=== PATIENT | male | born 1935 | race Caucasian/White ===

== ENCOUNTER 2020-07-08 14:01 | Inpatient (IN) | payer MEDICARE, MEDICAID ==
[~2020-07-08] VITALS: Ht 160.2 cm; Wt 65.7 kg
--- NOTE | 2020-07-08 14:17 | ED GU-Male ---
General Chief Complaint: - Urinary Stated Complaint: PUS COMING FROM PENIS History of Present Illness Date Seen by Provider: Jul 08, 2020 Time Seen by Provider: 14:12 Initial Comments 84-year-old male sent in from the [place] [facility]. Patient is an uncircumcised male that has baldo pus coming from his penis. residential staff is unsure how long its been this way. They do report that his penis is more swollen, having difficulty retracting the foreskin. That over the last couple days he has not been as responsive has in the past. No reports of fevers or chills. He has had minimal to eat over the last couple days. No reports of fevers, cough or other systemic complaints. residential staff clarified that drainage started 3 weeks ago, they've been using some nystatin and had a small amount of drainage. That last Tuesday they were still able to retract the foreskin but today there is increased drainage and they're unable to retract the foreskin. Allergies and Home Medications Allergies Coded Allergies: insulin glargine (Verified Allergy, Unknown, 07/08/20) Patient Home Medication List Home Medication List Reviewed: Yes Review of Systems Review of Systems Constitutional: No chills, No fever; malaise EENTM: no symptoms reported Respiratory: No cough, No short of breath Cardiovascular: no symptoms reported Gastrointestinal: no symptoms reported Genitourinary: see HPI Musculoskeletal: no symptoms reported Skin: see HPI History of present illness is limited as patient does not communicate with me and [place] [facility] staff has limited information Past Agmgvlz-Trksxz-Ifcrcp Hx Past Med/Social Hx: Reviewed Nursing Past Med/Soc Hx Patient Social History Recent Foreign Travel: No Contact w/Someone Who Travel: No Physical Exam Vital Signs Vital Signs - First Documented 07/08/20 14:10 Temp 36.3 Pulse 71 Resp 18 B/P (MAP) 142/52 (82) Pulse Ox 97 O2 Delivery Room Air Capillary Refill : Height, Weight, BMI Height: '" Weight: lbs. oz. kg; BMI Method: General Appearance: other (decreased responsiveness) Cardiovascular: regular rate, rhythm Respiratory: lungs clear, normal breath sounds Gastrointestinal: soft, tenderness (mild lower abdomen, patient flinches and gross palpation) Genital/Rectal: other (patient is uncircumcised with gross pus coming out the tube of the foreskin with erythema and swelling) Neurologic/Psychiatric: other (patient does not verbally respond) Skin: other (small ulceration at the tip of the foreskin) Focused Exam Lactate Level 07/08/20 14:35: Lactic Acid Level 2.29*H Lactic Acid Level Laboratory Tests Test 07/08/20 14:35 Lactic Acid Level 2.29 MMOL/L (0.50-2.00) *H Progress/Results/Core Measures Suspected Sepsis SIRS Temperature: Pulse: Respiratory Rate: Laboratory Tests 07/08/20 14:35: White Blood Count 14.2H Blood Pressure / Mean: 07/08/20 14:35: Lactic Acid Level 2.29*H Laboratory Tests 07/08/20 14:35: Creatinine 1.13, Platelet Count 291, Total Bilirubin 0.2 Results/Orders Lab Results Laboratory Tests Test 07/08/20 14:35 07/08/20 14:47 Range/Units White Blood Count 14.2 H 4.3-11.0 10^3/uL Red Blood Count 4.21 L 4.35-5.85 10^6/uL Hemoglobin 12.9 L 13.3-17.7 G/DL Hematocrit 42 40-54 % Mean Corpuscular Volume 100 H 80-99 FL Mean Corpuscular Hemoglobin 31 25-34 PG Mean Corpuscular Hemoglobin Concent 31 L 32-36 G/DL Red Cell Distribution Width 13.5 10.0-14.5 % Platelet Count 291 130-400 10^3/uL Mean Platelet Volume 10.2 7.4-10.4 FL Immature Granulocyte % (Auto) 0 % Neutrophils (%) (Auto) 48 42-75 % Lymphocytes (%) (Auto) 41 12-44 % Monocytes (%) (Auto) 5 0-12 % Eosinophils (%) (Auto) 6 0-10 % Basophils (%) (Auto) 0 0-10 % Neutrophils # (Auto) 6.8 1.8-7.8 X 10^3 Lymphocytes # (Auto) 5.8 H 1.0-4.0 X 10^3 Monocytes # (Auto) 0.7 0.0-1.0 X 10^3 Eosinophils # (Auto) 0.8 H 0.0-0.3 10^3/uL Basophils # (Auto) 0.1 0.0-0.1 10^3/uL Immature Granulocyte # (Auto) 0.1 0.0-0.1 10^3/uL Neutrophils % (Manual) 43 % Lymphocytes % (Manual) 35 % Monocytes % (Manual) 3 % Eosinophils % (Manual) 6 % Basophils % (Manual) 1 % Band Neutrophils 5 % Atypical Lymphocytes 7 % Blood Morphology Comment NORMAL Sodium Level 140 135-145 MMOL/L Potassium Level 4.9 3.6-5.0 MMOL/L Chloride Level 102 98-107 MMOL/L Carbon Dioxide Level 27 21-32 MMOL/L Anion Gap 11 5-14 MMOL/L Blood Urea Nitrogen 22 H 7-18 MG/DL Creatinine 1.13 0.60-1.30 MG/DL Estimat Glomerular Filtration Rate > 60 BUN/Creatinine Ratio 19 Glucose Level 376 H 70-105 MG/DL Lactic Acid Level 2.29 *H 0.50-2.00 MMOL/L Calcium Level 9.1 8.5-10.1 MG/DL Corrected Calcium 9.3 8.5-10.1 MG/DL Magnesium Level 1.9 1.6-2.4 MG/DL Total Bilirubin 0.2 0.1-1.0 MG/DL Aspartate Amino Transf (AST/SGOT) 12 5-34 U/L Alanine Aminotransferase (ALT/SGPT) 8 0-55 U/L Alkaline Phosphatase 114 40-136 U/L Total Protein 7.3 6.4-8.2 GM/DL Albumin 3.7 3.2-4.5 GM/DL Urine Color YELLOW Urine Clarity CLOUDY Urine pH 5.5 5-9 Urine Specific Laurier >1.030 1.016-1.022 Urine Protein NEGATIVE NEGATIVE Urine Glucose (UA) 2+ H NEGATIVE Urine Ketones NEGATIVE NEGATIVE Urine Nitrite POSITIVE H NEGATIVE Urine Bilirubin NEGATIVE NEGATIVE Urine Urobilinogen 0.2 < = 1.0 MG/DL Urine Leukocyte Esterase NEGATIVE NEGATIVE Urine RBC (Auto) 1+ H NEGATIVE Urine RBC 5-10 H /HPF Urine WBC 0-2 /HPF Urine Crystals NONE /LPF Urine Bacteria LARGE H /HPF Urine Casts NONE /LPF Urine Mucus NEGATIVE /LPF Urine Culture Indicated YES My Orders Orders - BRANDEN BOWENS L DO Cbc With Automated Diff (07/08/20 14:19) Comprehensive Metabolic Panel (07/08/20 14:19) Lactic Acid Analyzer (07/08/20 14:19) Magnesium (07/08/20 14:19) Ua Culture If Indicated (07/08/20 14:19) Genital Culture (07/08/20 14:19) Catheter(Urinary) Insert & Ass 03,15 (07/08/20 14:19) Abdomen (Kub) 1 View (07/08/20 14:19) Blood Culture (07/08/20 14:23) Ed Iv/Invasive Line Start (07/08/20 14:23) Cefepime Injection (Maxipime Injection) (07/08/20 14:30) Ed Iv/Invasive Line Start (07/08/20 14:25) Ns Iv 1000 Ml (Sodium Chloride 0.9%) (07/08/20 14:25) Urine Culture (07/08/20 14:47) Manual Differential (07/08/20 14:35) Medications Given in ED Current Medications Medications Dose Ordered Sig/Irina Route Start Time Stop Time Status Last Admin Dose Admin Cefepime HCl 1000 mg/Sterile Water 10 ml @ 200 mls/hr ONCE ONCE IV 07/08/20 14:30 07/08/20 14:32 DC 07/08/20 15:14 200 MLS/HR Sodium Chloride 1,000 ml @ 500 mls/hr Q2H ONCE IV 07/08/20 14:25 07/08/20 16:25 DC 07/08/20 15:01 500 MLS/HR Vital Signs/I&O 07/08/20 07/08/20 14:10 16:19 Temp 36.3 36.3 Pulse 71 68 Resp 18 16 B/P (MAP) 142/52 (82) 168/76 (82) Pulse Ox 97 98 O2 Delivery Room Air Room Air Capillary Refill : Diagnostic Imaging Diagonstic Imaging: Xray Plain Films/CT/US/NM/MRI: abdomen Comments [facility], [place] NAME: PARTHA LOW [facility] REC#: [id number] PT STATUS: REG ER : 1935 PHYSICIAN: BRANDEN BOWENS DO ADMIT DATE: 07/08/20/ER FS Draft Date of Exam:07/08/20 ABDOMEN (KUB) 1 VIEW INDICATION: Abdominal tenderness. COMPARISON: None available. TECHNIQUE: Two radiographs of the abdomen dated 07/08/2020. FINDINGS: The minimally visualized lung bases are clear. Scattered vascular calcifications. Phleboliths within the lower pelvis. No dilated loops of large or small bowel. No differential air-fluid levels. No free air. No suspicious calcifications overlying the renal shadows. Scattered osseous degenerative changes without acute osseous abnormality. IMPRESSION: Chronic findings as described above without acute abnormality. Departure Communication (Admissions) Time/Spoke to Admitting Phy: 15:50 Okay to admit, we will start on Rocephin Impression Primary Impression: Urinary tract infection Qualified Codes: N39.0 - Urinary tract infection, site not specified Disposition: ADMITTED INPATIENT Condition: Stable Admissions Decision to Admit Reason: Admit from ER (General) Decision to Admit/Date: Jul 08, 2020 Time/Decision to Admit Time: 15:50 Departure-Patient Inst. Referrals: LINO BECKETT MD (PCP/Family) Primary Care Physician BRANDEN BOWENS DO Jul 08, 2020 14:17
[2020-07-08] MEDS ORDERED: NS IV 1000 ML 1,000 ML IV ONE (14:25)
[2020-07-08] MEDS ORDERED: CEFEPIME INJECTION 1,000 MG in WATER (STERILE) FOR INJECTION 10 ML IV ONE (14:30)
[2020-07-08 15:00] LABS: BASOPHILS # (AUTO) 0.1 10^3/uL (0.0-0.1); BASOPHILS % (AUTO) 0 % (0-10); EOSINOPHILS # (AUTO) 0.8 10^3/uL (0.0-0.3); EOSINOPHILS % (AUTO) 6 % (0-10); HEMATOCRIT 42 % (40-54); HEMOGLOBIN 12.9 G/DL (13.3-17.7); LYMPHOCYTES # (AUTO) 5.8 X 10^3 (1.0-4.0); LYMPHOCYTES % (AUTO) 41 % (12-44); MEAN CORPUSCULAR HEMOGLOBIN 31 PG (25-34); MEAN CORPUSCULAR HGB CONC 31 G/DL (32-36); MEAN CORPUSCULAR VOLUME 100 FL (80-99); MEAN PLATELET VOLUME 10.2 FL (7.4-10.4); MONOCYTES # (AUTO) 0.7 X 10^3 (0.0-1.0); MONOCYTES % (AUTO) 5 % (0-12); NEUTROPHILS # (AUTO) 6.8 X 10^3 (1.8-7.8); NEUTROPHILS % (AUTO) 48 % (42-75); PLATELET COUNT 291 10^3/uL (130-400); WHITE BLOOD COUNT 14.2 10^3/uL (4.3-11.0)
[2020-07-08 15:02] LABS: BACTERIA,URINE LARGE /HPF; BILIRUBIN,URINE NEGATIVE (NEGATIVE); CLARITY,URINE CLOUDY; COLOR,URINE YELLOW; GLUCOSE, URINE (UA) 2+ (NEGATIVE); KETONES,URINE NEGATIVE (NEGATIVE); LEUKOCYTE ESTERASE ,URINE NEGATIVE (NEGATIVE); NITRITE,URINE POSITIVE (NEGATIVE); PH,URINE 5.5 (5-9); PROTEIN,URINE NEGATIVE (NEGATIVE); WBC,URINE 0-2 /HPF
--- NOTE | 2020-07-08 15:08 | Diagnostic Imaging Report ---
INDICATION: Abdominal tenderness. COMPARISON: None available. TECHNIQUE: Two radiographs of the abdomen dated 07/08/2020. FINDINGS: The minimally visualized lung bases are clear. Scattered vascular calcifications. Phleboliths within the lower pelvis. No dilated loops of large or small bowel. No differential air-fluid levels. No free air. No suspicious calcifications overlying the renal shadows. Scattered osseous degenerative changes without acute osseous abnormality. IMPRESSION: Chronic findings as described above without acute abnormality. Dictated by: Dictated on workstation # [id number]
[2020-07-08 15:09] LABS: BILIRUBIN,TOTAL 0.2 MG/DL (0.1-1.0); BUN/CREATININE RATIO 19; CALCIUM 9.1 MG/DL (8.5-10.1); CARBON DIOXIDE 27 MMOL/L (21-32); CHLORIDE 102 MMOL/L (98-107); CREATININE SERUM 1.13 MG/DL (0.60-1.30); GFR ESTIMATED > 60; GLUCOSE 376 MG/DL (70-105); MAGNESIUM 1.9 MG/DL (1.6-2.4); POTASSIUM 4.9 MMOL/L (3.6-5.0); SODIUM 140 MMOL/L (135-145)
[2020-07-08 15:10] LABS: ALANINE AMINOTRANSFERASE 8 U/L (0-55); ALBUMIN 3.7 GM/DL (3.2-4.5); ALKALINE PHOSPHATASE 114 U/L (40-136); TOTAL PROTEIN 7.3 GM/DL (6.4-8.2)
[2020-07-08 15:16] LABS: ATYPICAL LYMPHOCYTES 7 %; BAND NEUTROPHILS 5 %; BASOPHILS % (MANUAL) 1 %; EOSINOPHILS % (MANUAL) 6 %; LYMPHOCYTES % (MANUAL) 35 %; MONOCYTES % (MANUAL) 3 %; NEUTROPHILS % (MANUAL) 43 %; RBC MORPH NORMAL
--- NOTE | 2020-07-08 16:35 | NUR ---
Call received from [facility], nurse on duty states that Dr. Chen prefers all his patients to be transferred to [place] for inpatient admission. Informed [facility] staff that Dr. Manzo believes patient needs inpatient urology care. Call placed to [facility], staff states they do not have inpatient urology. Call placed to patient's DPOA, informed of patient's need for admission and inpatient urology, DPOA gave consent to admit patient to [facility] in [place]. Call placed to [facility], nursing staff informed of DPOA's decision.
[2020-07-08 17:43] VITALS: BP_SYST 168; BP_SYST 189; BP_DIAS 76; BP_DIAS 82
[2020-07-08] MEDS ORDERED: NS IV 1000 ML 1,000 ML IV SCH (17:45)
--- NOTE | 2020-07-08 17:45 | NUR ---
Pardo Gloria admitted to room 420-1, with an admitting diagnosis of UTI, on 07/08/20 from [place] via , accompanied by .PARTHA LOW W introduced to surroundings, call light, bed controls, phone, TV, temperature control, lights, meal times, smoking policy, visitor policy, side rail policy, bathrooms and showers. Patient Rights given to patient in the handbook.PARTHA LOW W verbalizes understanding that [facility] is not responsible for the loss or damage to any personal effects or valuables that are kept in the patients posession during their hospitalization. PARTHA LOW W verbalizes understanding of Interdisciplinary Patient Education. Patient and/or family were informed about the Rapid Response Team and its purpose.
[2020-07-08] MEDS ORDERED: CATHETER FLUSH 10 ML SYR IV PRN (18:00)
[2020-07-08] MEDS: cefTRIAXone 1,000 MG/SWFI 10 ML IV PUSH IV SCH ×2 (18:23)
--- NOTE | 2020-07-08 19:50 | NUR ---
DR. PUENTES INFORMED ABOUT PT BEEN NPO AND DIABETIC WITHOUT INSULIN AND ACCUCHEK ORDERS. NE ORDERS TO START A PT ON A SLIDING SCALE, QHRS ACCUCHECK, AND TO PERFORMS A SWALLOW TEST TOMORROW.
[2020-07-08 20:30] VITALS: BP 182/84
--- NOTE | 2020-07-08 23:20 | NUR ---
DR PUENTES NOTIFIED ABOUT PT BLOD SUGAR OF 76. NEW ORDERS TO START D5 NS FLUIDS ON PT
[2020-07-08] MEDS: inSUlin ASPART (NovoLOG) 1 UNIT/0.01 ML (CHARGE PER UNIT) SC SCH (23:34)
[2020-07-09 00:37] VITALS: BP 182/90
[2020-07-09] MEDS: D5 NS 1000 ML IV SOLUTION 1,000 ML IV SCH ×2 (00:42→15:55)
[2020-07-09 04:41] VITALS: BP 174/78
[2020-07-09 05:59] LABS: ALANINE AMINOTRANSFERASE 10 U/L (0-55); ALBUMIN 3.4 GM/DL (3.2-4.5); ALKALINE PHOSPHATASE 86 U/L (40-136); BILIRUBIN,TOTAL 0.2 MG/DL (0.1-1.0); BUN/CREATININE RATIO 17; CALCIUM 8.1 MG/DL (8.5-10.1); CARBON DIOXIDE 22 MMOL/L (21-32); CHLORIDE 110 MMOL/L (98-107); CREATININE SERUM 0.98 MG/DL (0.60-1.30); GFR ESTIMATED > 60; GLUCOSE 85 MG/DL (70-105); POTASSIUM 3.9 MMOL/L (3.6-5.0); SODIUM 141 MMOL/L (135-145); TOTAL PROTEIN 6.5 GM/DL (6.4-8.2)
[2020-07-09] MEDS: inSUlin ASPART (NovoLOG) 1 UNIT/0.01 ML (CHARGE PER UNIT) SC SCH ×3 (06:06→17:59)
[2020-07-09 06:13] LABS: BASOPHILS # (AUTO) 0.1 10^3/uL (0.0-0.1); BASOPHILS % (AUTO) 0 % (0-10); EOSINOPHILS # (AUTO) 0.8 10^3/uL (0.0-0.3); EOSINOPHILS % (AUTO) 5 % (0-10); HEMATOCRIT 39 % (40-54); HEMOGLOBIN 12.1 g/dL (13.3-17.7); LYMPHOCYTES # (AUTO) 6.7 10^3/uL (1.0-4.0); LYMPHOCYTES % (AUTO) 42 % (12-44); MEAN CORPUSCULAR HEMOGLOBIN 30 pg (25-34); MEAN CORPUSCULAR HGB CONC 31 g/dL (32-36); MEAN CORPUSCULAR VOLUME 98 fL (80-99); MEAN PLATELET VOLUME 9.8 fL (9.0-12.2); MONOCYTES # (AUTO) 0.8 10^3/uL (0.0-1.0); MONOCYTES % (AUTO) 5 % (0-12); NEUTROPHILS # (AUTO) 7.7 10^3/uL (1.8-7.8); NEUTROPHILS % (AUTO) 48 % (42-75); PLATELET COUNT 273 10^3/uL (130-400); WHITE BLOOD COUNT 16.1 10^3/uL (4.3-11.0)
[2020-07-09 08:00] VITALS: BP 157/45
--- NOTE | 2020-07-09 09:00 | ST Dysphagia Evaluation ---
Speech Evaluation-General Medical Diagnosis UTI Onset Date: Jul 08, 2020 Therapy Diagnosis Therapy Diagnosis: Oropharyngeal Dysphagia Precautions Precautions: Aspiration Referral Referring Physician: Dr. Kwan Medical History Pertinent Medical History: Dementia Reviewed History: Yes Social History Home: Half-Way Current Living Status: Speech PLF/Current-Dysphagia Prior Level of Function Patient lives in the NH where his daily needs are met with staff assistance. Subjective Patient was confused but cooperative with the Bedside Dysphagia Evaluation. Oral Motor Skills Dentition: Edentalous Ability to Follow Directions: Fair NPO pending BDE Oral Expression Ability: Moderate Impairment Voice Voice Phonatory-Based Quality: Tremor, Weak Voice Pitch: Normal Voice Loudness: Moderately Soft/Quiet Face Facial Symmetry: Symmetrical Oral-Facial Assessment Oral-Facial Dentition: Normal Labial Seal Description: Reduced ROM Smile: Reduced ROM Lingual Protrusion: Abnormal Lingual ROM: Abnormal Lingual Strength: Normal Pharynx Velopharyngeal Move.: Normal Volitional Dry Swallow: Yes Dysphagia Evaluation Consistencies Presented: Thin Liquid, Mechanical Soft, Pureed Oral Phase: Unable to Form Bolus Oral phase is grossly within normal range for thin puree. Patient unable to form/manage a bolus for mechanical soft Pharyngeal Phase: Delayed Swallow Pharyngeal phase is within normal range for thin puree. Patient demo decreased swallow onset for mechanical soft Dietary Recommendations: Pureed Liquid Recommendations: Thin Swallowing Precautions: Alternate Liquids/Solids, Decreased Bolus 1/2 Tsp, Liquids from Straw, Small Bites and Sips, Sitting Upright 90 Degrees, Sitting 90 Degrees 30 Post Intake Dysphagia Evaluation Summary Patient was referred for a Bedside Dysphagia Evaluation by Dr. Kwan. BDE completed with thin liquids at 1/2 tsp x2 and small sips via straw x2 without difficulty. Puree was presented at 1/2 tsp without difficulty. Patient was presented 1/2 tsp of mechanical soft, however due to his edentulous state he had difficulty with bolus management and swallow onset. Patient is recommended for Dysphagia I with thin liquids. These diet recs were provided to nursing as well as written on the white board in his room. Barriers to Learning Patient's dementia, age Speech-Plan Patient/Family Goals Patient/Family Goals: Patient will return to the NH upon discharge. Treatment Plan Speech Therapy Treatment Plan: Discontinue ST Treatment Duration: Jul 09, 2020 Frequency: 1 time per week Estimated Hrs Per Day: .5 hour per day Rehab Potential: Guarded Barriers to Learning: Patient's dementia, age Pt/Family Agrees to Plan: Yes Safety Risks/Education Teaching Recipient: Patient Teaching Methods: Discussion Response to Teaching: Verbalize Understanding, Reinforcement Needed Education Topics Provided: Safety of oral intake, diet level Time Speech Therapy Time In: 08:15 Speech Therapy Time Out: 08:40 Total Billed Time: 25 Billed Treatment Time 1, TOMASA, DYST JUSTINO Marks Jul 09, 2020 08:59
[2020-07-09] MEDS ORDERED: LINA5TAB PO (11:05)
[2020-07-09] MEDS ORDERED: ACET-2267 PO (11:05)
[2020-07-09] MEDS ORDERED: DIPH25TA65 PO (11:05)
[2020-07-09] MEDS ORDERED: POTA10CA43 PO (11:05)
[2020-07-09] MEDS ORDERED: SERT25TA5 PO (11:05)
[2020-07-09] MEDS ORDERED: NYST15CR TOP (11:05)
[2020-07-09] MEDS ORDERED: TR025C15 TP (11:05)
[2020-07-09] MEDS ORDERED: INSU100I29 SC (11:05)
[2020-07-09] MEDS ORDERED: METF-399 PO (11:05)
[2020-07-09] MEDS ORDERED: POLY17PO6 PO (11:05)
[2020-07-09] MEDS ORDERED: SERT50TA9 PO (11:05)
[2020-07-09] MEDS ORDERED: PRIM50TA33 PO (11:05)
--- NOTE | 2020-07-09 11:06 | NUR ---
THE MED REC WAS ENTERED USING THE TRANSFER/DISCHARGE REPORT FROM [facility] I CALLED THE FACILITY TO CLARIFY THE MEDICATIONS- I SPOKE WITH ULISES WHO GAVE MY THE SCHEDULE OF HIS DAILY MEDICATIONS. I ALSO ASKED ABOUT NYSTATIN CREAM THAT IS SHOWN ON THE EXT MED HISTORY BUT IS NOT ON THE MEDICATION LIST AND SHE DID CONFIRM THE PT WAS STILL USING PRIOR TO HIS ADMISSION HERE.
--- NOTE | 2020-07-09 11:59 | History & Physical-Hospitalist ---
History of Present Illness HPI/Chief Complaint Pt is an 84yoCM with dementia who presented to the ER due to penile discharge and lethargy per the NH. He does not provide any history and I am unsure if this is his baseline. Reportedly he developed penile discharge over the past couple of days and his foreskin was unable to be retracted prompting them to send him to the ER for evaluation. He was found to have a UTI and was admitted for IV abx. Source: patient Date Seen 07/09/20 Time Seen by a Provider: 11:51 Attending Physician Deandre Kwan MD PCP Riki Chen MD Referring Physician Date of Admission Jul 08, 2020 at 17:34 Home Medications & Allergies Home Medications Reviewed patient Home Medication Reconciliation performed by pharmacy medication reconciliations tire technician and/or nursing. Patients Allergies have been reviewed. Allergies Allergies Coded Allergies insulin glargine (Verified Allergy, Unknown, 07/08/20) Past Utnqmfd-Udfpaa-Ytqehg Hx Past Med/Social Hx: Reviewed Nursing Past Med/Soc Hx Patient Social History Employed/Student: retired Alcohol Use: Denies Use Recreational Drug Use: No Smoking Status: Never a Smoker 2nd Hand Smoke Exposure: No Recent Foreign Travel: No Contact w/other who traveled: No Recent Hopitalizations: No Recent Infectious Disease Expo: No Seasonal Allergies Seasonal Allergies: No Past Medical History Neurological: Dementia Endocrine: Diabetes, Insulin dep Psychosocial: Depression History of Blood Disorders: No Family History Reviewed Nursing Family Hx Review of Systems ROS-Unable to Obtain: clinical condition Constitutional: see HPI Physical Exam Physical Exam Vital Signs Vital Signs - First Documented 07/08/20 14:10 Temp 36.3 Pulse 71 Resp 18 B/P (MAP) 142/52 (82) Pulse Ox 97 O2 Delivery Room Air Capillary Refill : Less Than 3 SecondsLess Than 3 Seconds Height, Weight, BMI Height: '" Weight: lbs. oz. kg; 170.91 BMI Method: General Appearance: No Apparent Distress, Chronically ill HEENT: PERRL/EOMI, Moist Mucous Membranes Neck: Normal Inspection Respiratory: Lungs Clear, No Respiratory Distress Cardiovascular: Regular Rate, Rhythm, No Murmur Gastrointestinal: Normal Bowel Sounds, Non Tender, Soft Extremity: Normal Capillary Refill, No Calf Tenderness, No Pedal Edema Neurologic/Psychiatric: Alert (opens eyes to touch but otherwise no response) Skin: Normal Color, Warm/Dry Results Results/Procedures Labs Laboratory Tests 07/08/20 14:35 07/09/20 05:25 07/09/20 06:05 Patient resulted labs reviewed. Imaging: Reviewed Imaging Report Imaging [facility], [place] NAME: PARTHA LOW [facility] REC#: [id number] PT STATUS: DEP ER : 1935 PHYSICIAN: BRANDEN BOWENS DO ADMIT DATE: 07/08/20/ER FS Signed Date of Exam:07/08/20 ABDOMEN (KUB) 1 VIEW INDICATION: Abdominal tenderness. COMPARISON: None available. TECHNIQUE: Two radiographs of the abdomen dated 07/08/2020. FINDINGS: The minimally visualized lung bases are clear. Scattered vascular calcifications. Phleboliths within the lower pelvis. No dilated loops of large or small bowel. No differential air-fluid levels. No free air. No suspicious calcifications overlying the renal shadows. Scattered osseous degenerative changes without acute osseous abnormality. IMPRESSION: Chronic findings as described above without acute abnormality. Dictated by: Dictated on workstation # [id number] Dict: 07/08/20 1505 Trans: 07/08/20 1707 [id number] Interpreted by: JODY WILLS MD Electronically signed by: JODY WILLS MD 07/08/20 1707 Assessment/Plan Admission Diagnosis UTI Admission Status: Inpatient Order (span 2 midnights) Reason for Inpatient Admission: see below Assessment and Plan UTI Continue on IV abx Await cultures Will attempt to contact NM to get info on baseline mentation IDDMII Continue home meds SSI Accu checks Elevated BP Not currently on any antihypertensives Trend and add as needed Dementia Unsure of baseline PT/OT DVT ppx: Lovenox Clinical Quality Measures DVT/VTE Risk/Contraindication: Risk Factor Score Per Nursin RFS Level Per Nursing on Admit: 4+=Very High DEANDRE KWAN MD Jul 09, 2020 11:59
[2020-07-09 12:00] VITALS: BP 147/72
[2020-07-09] MEDS ORDERED: polyethylene glycoL POWDER 17 GM (MIRALAX) PACK PO PRN (12:15)
[2020-07-09] MEDS ORDERED: ACETAMINOPHEN 500 MG TAB (TYLENOL) PO PRN (12:15)
[2020-07-09] MEDS ORDERED: TRIAMCINOLONE 0.025% CR (KENALOG) 15 GM TUBE TP PRN (12:15)
--- NOTE | 2020-07-09 12:52 | NUR ---
CM/SS visited with patient for discharge planning. Plan: patient will return to [facility] at time of discharge. The patient was lying in bed. He smiled and waved to this sw. Patient is verbal but is limited in conversation and tracking. He responds well to being called "speedy". [facility]: CM/SS contacted Michelle from facility to get information of patient's baseline. She reports that he is wheelchair bound and does have Dementia. 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 He is able to verbally communicate but is limited and is "quiet" most of the time. She states he sometimes will just keep his eye's closed when people talk to him as well. Michelle reports that the patient is on a pureed diet. CM/SS informed the patient's physician. CM/SS will continue to follow.
[2020-07-09] MEDS: NYSTATIN CREAM (MYCOSTATIN) 30 GM TUBE TP SCH ×2 (13:43→20:39)
--- NOTE | 2020-07-09 13:48 | NUR ---
"RD ASSESSMENT PMHx: DM; chronic ischemic heart disease PT INTERACTION: Note pt has dementia and is a poor historian, per chart review. Note all information gathered is per chart review. Note PO intake 50% x1meal. Note no current issues with nausea, vomiting, constipation, or diarrhea, per Griffin RN. Note no BM has been recorded, and pt not currently on bowel regimen. Note unable to determine recent wt hx. Note unable to determine current level of DM management, and not unable to determine recent HbA1c. ABNORMAL NUTRITION-RELATED LAB VALUES LOW: Ca 8.1; HIGH: Cl 110; Est. kcal needs: 1650 kcal | 25 kcal/kg Est. Pro needs: 53 g Pro | 0.8 g Pro/kg PES STATEMENT: Inadequate oral intake (NI-2.1) related to loss of appetite as evidenced by chart review | PO intake 50% x1meal INTERVENTION: Continue with current diet order of DYS1 Pureed diet. Pt may benefit from nutrition supplementation if PO intake declines. Did not offer diet education on DM management at this time, d/t pt's altered mental status. May attempt to offer education when family is present at bedside. Will continue to follow and reassess as pt needs, intake, and status change. Carmen Locke, MS, RD, LD"
--- NOTE | 2020-07-09 14:42 | Physical Therapy Evaluation ---
PT Evaluation-General Medical Diagnosis Admission Date Jul 08, 2020 at 17:34 Medical Diagnosis: UTI Onset Date: Jul 08, 2020 Therapy Diagnosis Therapy Diagnosis: impaired mobility, strength, ROM; increased tone Precautions Precautions/Isolations: Fall Prevention, Standard Precautions Referral Physician: Aquiles Reason for Referral: Evaluation/Treatment Medical History Pertinent Medical History: Dementia Additional Medical History Past Medical History Neurological: Dementia Endocrine: Diabetes, Insulin dep Psychosocial: Depression Reviewed History: Yes Social History Home: Residential Current Living Status: Entry Into Home: Level Entry Prior Prior Level of Function SCALE: Activities may be completed with or without assistive devices. 1-Gicxhzfsfu-heexdzi completes the activity by him/herself with no assistance f rom a helper. 5-Set-up or Clean-up Assistance-helper sets up or cleans up; patient completes activity. [place] assists only prior to or following the activity. 4-Supervision or Touching Assistance-helper provides verbal cues and/or touching/steadying and/or contact guard assistance as patient completes activity. Assistance may be provided throughout the activity or intermittently. 3-Partial/Moderate Assistance-helper does LESS THAN HALF the effort. [place] lifts, holds or supports trunk or limbs, but provides less than half the effort. 2-Substantial/Maximal Assistance-helper does MORE THAN HALF the effort. [place] lifts or holds trunk or limbs and provides more than half the effort. 5-Uumueujnn-artvgq does ALL the effort. Patient does none of the effort to complete the activity. Or, the assistance of 2 or more helpers is required for the patient to complete the activity. If activity was not attempted, code reason: 7-Patient Refused. 9-Not Applicable-not attempted and the patient did not perform the activity before the current illness, exacerbation or injury. 10-Not Attempted due to Environmental Limitations-(lack of equipment, weather restraints, etc.). 88-Not Attempted due to Medical Conditions or Safety Concerns. unsure, but he seemed to be wheelchair bound. PT Evaluation-Current Subjective Pt presents supine in bed. Pt agrees to PT. Pt reports no current pain. Pt/Family Goals Return to intermediate Objective Patient Orientation: Person, Confused, Mumbles Attachments: Pacheco Catheter, IV ROM/Strength ROM Lower Extremities Limited LLE knee flexion/ext Strength Lower Extremities Gross B LE 3+/5 Sensory Hearing: Functional Transfers Roll Left to Right (QC): 2 Sit to Lying (QC): 2 Lying to Sitting/Side of Bed(Q: 2 Gait Does the Patient Walk?: No and Walking Goal NOT indicated Balance Sitting Static: Poor Sitting Dynamic: Poor Treatment PROM to B LE Assessment/Needs Pt requires max assist with bed mobility. Pt is unable to sit up straight; leans heavily towards R side. Pt has increased tone in L quad limiting PROM of knee flexion. Rehab Potential: Poor PT Morgue Attendant Goals Half-Way Goals PT Half-Way Goals Time Frame: Jul 16, 2020 Roll Left & Right (QC): 4 Sit to Lying (QC): 3 Lying-Sitting on Side/Bed(QC): 3 Chair/Noh-gz-Lkiub Xfer(QC): 2 Toilet Transfer (QC): 2 Car Transfer (QC): 2 Does the Patient Walk: No and Walking Goal NOT indicated PT Plan Problem List Problem List: Activity Tolerance, Functional Strength, Safety, Balance, Gait, Transfer, Bed Mobility, ROM Treatment/Plan Treatment Plan: Continue Plan of Care Treatment Plan: Bed Mobility, Education, Functional Activity Dora, Functional Strength, Safety, Therapeutic Exercise, Transfers Treatment Duration: Jul 16, 2020 Frequency: 6 times per week Estimated Hrs Per Day: .25 hour per day Patient and/or Family Agrees t: Yes Safety Risks/Education Patient Education: Transfer Techniques, Correct Positioning, Safety Issues Teaching Recipient: Patient Teaching Methods: Demonstration, Discussion Response to Teaching: Reinforcement Needed Discharge Recommendations Plan Plan to work with patient on bed mobility, transfers, LE strengthening and ROM. Therapy Discharge Recommendati: Other, See Comments (NH) Time/GCodes Time In: 1400 Time Out: 1412 Total Billed Treatment Time: 12 Total Billed Treatment 1 visit TUAN PRADO PT Jul 09, 2020 14:42
--- NOTE | 2020-07-09 14:59 | NUR ---
PRIMIDONE UNAVAILABLE IN [facility], PHARMACY WILL SEND X1 DOSE
--- NOTE | 2020-07-09 15:03 | Occupational Therapy Eval ---
OT Evaluation-General/PLF Medical Diagnosis Admission Date Jul 08, 2020 at 17:34 Medical Diagnosis: UTI Onset Date: Jul 08, 2020 Therapy Diagnosis Therapy Diagnosis: Weakness Precautions Precautions/Isolations: Fall Prevention, Standard Precautions Referral Physician: Aquiles Referral Reason: Activity Tolerance, Self Care, Evaluation/Treatment, Strengthening/ROM Medical History Pertinent Medical History: Dementia Additional Medical History Dementia, Penile discharge Reviewed History: Yes Social History Home: Detention Current Living Status: Entry Into Home: Level Entry ADL-Prior Level of Function SCALE: Activities may be completed with or without assistive devices. 7-Ucsqynoyiv-gzzjqvc completes the activity by him/herself with no assistance from a helper. 5-Set-up or Clean-up Assistance-helper sets up or cleans up; patient completes activity. [place] assists only prior to or following the activity. 4-Supervision or Touching Assistance-helper provides verbal cues and/or touching/steadying and/or contact guard assistance as patient completes activity. Assistance may be provided throughout the activity or intermittently. 3-Partial/Moderate Assistance-helper does LESS THAN HALF the effort. [place] lifts, holds or supports trunk or limbs, but provides less than half the effort. 2-Substantial/Maximal Assistance-helper does MORE THAN HALF the effort. [place] lifts or holds trunk or limbs and provides more than half the effort. 6-Uxriithok-zqyjgd does ALL the effort. Patient does none of the effort to complete the activity. Or, the assistance of 2 or more helpers is required for the patient to complete the activity. If activity was not attempted, code reason: 7-Patient Refused. 9-Not Applicable-not attempted and the patient did not perform the activity bef ore the current illness, exacerbation or injury. 10-Not Attempted due to Environmental Limitations-(lack of equipment, weather r estraints, etc.). 88-Not Attempted due to Medical Conditions or Safety Concerns. ADL PLOF Comments [place]. It is unknown at this time what pt's previous functional level or cognitive level is at this time. Pt. is unable to verbalize this. Self Care: Unknown Functional Cognition: Unknown OT Current Status Subjective Pt. verbalizes very little. Does not report pain. ADL-Treatment Eating (QC): 2 Other Treatments Pt. in bed. Tray at bedside. OT introduces self and encourages pt. to participate. Pt. will occasionally verbalize, but mainly just looks at OT. Does state that he is cold, and so OT gives him an extra blanket. OT attempts to engage him in feeding task. OT places food on spoon, and then hands spoon to him. Pt. requires mod assist but is able to bring to mouth. Pt. opens mouth to show OT that he has food in it. Pt. will not attempt to feed self further, but does take two very minimal bites from spoon when OT puts at his mouth. Pt. takes one sip of tea, but declines any further food/drink. Pt. unable to state previous level or participate in further treatment. All needs met. Education OT Patient Education: Correct positioning, Modified ADL techniques, Progress toward Goal/Update tx plan, Purpose of tx/functional activities, Reviewed precautions, Rehab process Teaching Recipient: Patient Teaching Methods: Demonstration, Discussion Response to Teaching: Unable to Return Demonstration, Unable to Comprehend OT Mobile Lab Technician Goals Mobile Lab Technician Goals Time Frame: Jul 23, 2020 Eating (QC): 3 (Min assist) Upper Body Dressing (QC): 3 (Mod assist) Pt. can sit on side of bed unsupported for 3 minutes. Additional Goals: 1-Demonstrate ADL Tasks, 2-Verbalize Understanding, 3- ImproveStrength/Dora 1=Demonstrate adherence to instructed precautions during ADL tasks. 2=Patient will verbalize/demonstrate understanding of assistive devices/modifications for ADL. 3=Patient will improve strength/tolerance for activity to enable patient to perform ADL's. OT Education/Plan Problem List/Assessment Assessment: Decreased Activ Tolerance, Decreased Safety Aware, Decreased UE Strength, Dependent Transfers, Impaired Bed Mobility, Impaired Cognition, Impaired Coordination, Impaired Funct Balance, Impaired I ADL's, Impaired Self- Care Skills, Restricted Funct UE ROM Discharge Recommendations Plan/Recommendations: Continue POC Therapy Discharge Recommendati: 24 Hour Supervision Treatment Plan/Plan of Care Treatment,Training & Education: Yes Patient would benefit from OT for education, treatment and training to promote independence in ADL's, mobility, safety and/or upper extremity function for ADL's. Plan of Care: ADL Retraining, Functional Mobility Treatment Duration: Jul 23, 2020 Frequency: 5 times per week Estimated Hrs Per Day: .25 hour per day Agreement: Yes Rehab Potential: Guarded Time/GCodes Start Time: 14:30 Stop Time: 14:45 Total Time Billed (hr/min): 15 Billed Treatment Time 1, PERLA CHOI OT Jul 09, 2020 15:03
[2020-07-09] MEDS: ENOXAPARIN 40 MG/0.4 ML (LOVENOX) SYR SQ SCH (15:46)
[2020-07-09] MEDS: PRIMIDONE 50 MG TAB (MYSOLINE) PO SCH ×2 (15:52→20:39)
[2020-07-09 16:00] VITALS: BP 144/70
[2020-07-09] MEDS: cefTRIAXone 1,000 MG/SWFI 10 ML IV PUSH IV SCH ×2 (18:16)
[2020-07-09 20:44] VITALS: BP 168/82
[2020-07-10 00:52] VITALS: BP 165/67
[2020-07-10] MEDS: inSUlin ASPART (NovoLOG) 1 UNIT/0.01 ML (CHARGE PER UNIT) SC SCH ×4 (00:58→17:35)
[2020-07-10 04:20] VITALS: BP 155/76
[2020-07-10] MEDS: D5 NS 1000 ML IV SOLUTION 1,000 ML IV SCH ×2 (05:33→17:37)
[2020-07-10 08:00] VITALS: BP 144/77
[2020-07-10] MEDS ORDERED: NON-FORMULARY MEDICATION 1 EA EA (Sertraline HCl 25 MG) PO SCH (09:00)
[2020-07-10] MEDS ORDERED: NON-FORMULARY MEDICATION 1 EA EA (Insulin Detemir (Levemir Flextouch) 40 UNITS) SC SCH (09:00)
[2020-07-10] MEDS ORDERED: SERTRALINE 50 MG (ZOLOFT) TABLET PO SCH (09:00)
--- NOTE | 2020-07-10 10:05 | Physical Therapy Daily Note ---
PT Daily Note-Current Appearance eyes closed during entire session Mental Status Attachments: Pacheco Catheter, IV Transfers SCALE: Activities may be completed with or without assistive devices. 5-Dtasiwqqyo-hgimqll completes the activity by him/herself with no assistance from a helper. 5-Set-up or Clean-up Assistance-helper sets up or cleans up; patient completes activity. [place] assists only prior to or following the activity. 4-Supervision or Touching Assistance-helper provides verbal cues and/or touching/steadying and/or contact guard assistance as patient completes activity. Assistance may be provided throughout the activity or intermittently. 3-Partial/Moderate Assistance-helper does LESS THAN HALF the effort. [place] lifts, holds or supports trunk or limbs, but provides less than half the effort. 2-Substantial/Maximal Assistance-helper does MORE THAN HALF the effort. [place] lifts or holds trunk or limbs and provides more than half the effort. 0-Nmypnpokk-ypacre does ALL the effort. Patient does none of the effort to co mplete the activity. Or, the assistance of 2 or more helpers is required for the patient to complete the activity. If activity was not attempted, code reason: 7-Patient Refused. 9-Not Applicable-not attempted and the patient did not perform the activity before the current illness, exacerbation or injury. 10-Not Attempted due to Environmental Limitations-(lack of equipment, weather restraints, etc.). 88-Not Attempted due to Medical Conditions or Safety Concerns. Roll Left & Right (QC): 1 (x 2) Sit to Lying (QC): 1 (x 2) Lying to Sitting/Side of Bed(Q: 1 (x 2) patient sat EOB x 8 min dependent assist x 2 Exercises Supine Ex: Ankle pumps, Heel Slides, Straight leg raise, Hip abd/add Supine Reps: 10 (PROM with noted contracture bilateral knee flexion) Assessment Current Status: Poor Progress Patient is bed and w/c bound PLOF and required dependent assist at [place]. Patient repositioned to sidelying right with pillow placement for comfort and positioning. PT Bullet Charging Machine Operator Goals Fdc Goals PT Bullet Charging Machine Operator Goals Time Frame: Jul 16, 2020 Roll Left & Right (QC): 4 Sit to Lying (QC): 3 Lying-Sitting on Side/Bed(QC): 3 Chair/Hyq-gy-Pumnt Xfer(QC): 2 Toilet Transfer (QC): 2 Car Transfer (QC): 2 Does the Patient Walk: No and Walking Goal NOT indicated PT Plan Treatment/Plan Treatment Plan: Modify Plan, see comments Treatment Plan: Bed Mobility, Education, Functional Activity Dora, Functional Strength, Safety, Therapeutic Exercise, Transfers Treatment Duration: Jul 16, 2020 Frequency: 5 times per week Estimated Hrs Per Day: .25 hour per day Patient and/or Family Agrees t: Yes Time/GCodes Time In: 855 Time Out: 912 Total Billed Treatment Time: 17 Total Billed Treatment 1 visit EX 17 min MARVIN VANN PT Jul 10, 2020 10:05
--- NOTE | 2020-07-10 10:31 | Progress Note - Hospitalist ---
Subjective HPI/CC On Admission Date Seen by Provider: Jul 10, 2020 Time Seen by Provider: 10:29 Pt is an 84yoCM with dementia who presented to the ER due to penile discharge and lethargy per the NH. He does not provide any history and I am unsure if this is his baseline. Reportedly he developed penile discharge over the past couple of days and his foreskin was unable to be retracted prompting them to send him to the ER for evaluation. He was found to have a UTI and was admitted for IV abx. Subjective/Events-last exam Pt sleeping. Shakes his head no when asked if he needed anything. Otherwise did not talk. Focused Exam Lactate Level 07/08/20 14:35: Lactic Acid Level 2.29*H Objective Exam Vital Signs Vital Signs Date Time Temp Pulse Resp B/P (MAP) Pulse Ox O2 Delivery O2 Flow Rate FiO2 07/10/20 09:00 Room Air 07/10/20 08:00 36.4 65 16 144/77 (99) 94 Capillary Refill : Less Than 3 SecondsLess Than 3 Seconds General Appearance: No Apparent Distress, Chronically ill Respiratory: Lungs Clear, No Respiratory Distress Cardiovascular: Regular Rate, Rhythm, No Murmur Neurologic/Psychiatric: Alert, Oriented x3 Results/Procedures Lab Patient resulted labs reviewed. Imaging: Reviewed Imaging Report Assessment/Plan Assessment and Plan Assess & Plan/Chief Complaint UTI Continue on IV abx Await cultures, urine growing GNR, blood cultures NGTD IDDMII Continue home meds SSI Accu checks Elevated BP Not currently on any antihypertensives Relatively well controlled for age Dementia Appears to be at baseline Discussed with Cindy MURO who states his baseline is quiet and confused ("out in left field" is how she phrased it) Brought up hospice option but she would like to think about this prior to enrollment PT/OT DVT ppx: Lovenox Clinical Quality Measures DVT/VTE Risk/Contraindication: Risk Factor Score Per Nursin RFS Level Per Nursing on Admit: 4+=Very High DEANDRE JOHNSON MD Jul 10, 2020 10:31
[2020-07-10] MEDS: PRIMIDONE 50 MG TAB (MYSOLINE) PO SCH ×3 (10:51→20:19)
[2020-07-10] MEDS: SERTRALINE 50 MG (ZOLOFT) TABLET PO SCH (10:52)
[2020-07-10] MEDS: NYSTATIN CREAM (MYCOSTATIN) 30 GM TUBE TP SCH ×3 (10:52→20:19)
[2020-07-10] MEDS: LINAGLIPTIN (TRADJENTA) 5 MG TABLET PO SCH (10:52)
--- NOTE | 2020-07-10 11:55 | NUR ---
CM/SS follow up. CM/SS was notified from physician that patient might discharge tomorrow. CM/SS attempted to contact Michelle from [facility] x2. No answer, voice mail left with call back number. CM/SS faxed updated clinical to facility. Awaiting call back from facility. CM/SS attempted to visit with patient. The patient was resting; this sw did not wake patient up. CM/SS will continue to follow. Addendum: 07/10/20 at 1314 by PEBBLES MCCABE CM/SS received call back from Michelle. She verbalized understanding. CM/SS discussed that it is probable that patient will discharge retirement.
[2020-07-10 12:00] VITALS: BP 144/71
[2020-07-10] MEDS: ENOXAPARIN 40 MG/0.4 ML (LOVENOX) SYR SQ SCH (14:35)
--- NOTE | 2020-07-10 14:39 | Occ Therapy Progress Note ---
Therapy Progress Note Chart reviewed. Pt. evaluated yesterday, but OT unsure of previous level. Chart indicates pt. at baseline per NH. OT attempted treatment one more time. Pt. asleep. Unable to wake pt. up. Due to pt. being at baseline, and unable to participate in skilled treatment, no further OT assessments with be performed at this time. Thank you for this referral. 1, visit [id number] PERLA LANCASTER OT Jul 10, 2020 14:39
[2020-07-10 15:30] VITALS: BP 149/70
[2020-07-10] MEDS: cefTRIAXone 1,000 MG/SWFI 10 ML IV PUSH IV SCH ×2 (17:35)
[2020-07-10 20:00] VITALS: BP 161/75
[2020-07-10] MEDS ORDERED: CEPH-507 PO (21:03)
[2020-07-11] VITALS: BP 155/75
[2020-07-11] MEDS: inSUlin ASPART (NovoLOG) 1 UNIT/0.01 ML (CHARGE PER UNIT) SC SCH ×2 (00:38→06:00)
[2020-07-11 04:11] VITALS: BP 134/77
[2020-07-11] MEDS: D5 NS 1000 ML IV SOLUTION 1,000 ML IV SCH (05:28)
[2020-07-11 08:00] VITALS: BP 159/71
--- NOTE | 2020-07-11 08:48 | Discharge Inst-Simple/Standard ---
Discharge Inst-Standard Discharge Medications New, Converted or Re-Newed RX: Transmitted to Pharmacy Patient Instructions/Follow Up Plan of Care/Instructions/FU: Please continue to take your medications as written. Please follow up with your primary care doctor to follow up this hospital stay. Activity as Tolerated: Yes Discharge Diet: Soft Diet Return to The Hospital For: Fever, chest pain, confusion, cough, shortness of breath, if you feel you are getting worse. Planned Outpatient Orders/Ref. Pneu Vac Indicated: Yes DEANDRE JOHNSON MD Jul 11, 2020 08:48
[2020-07-11] MEDS: LINAGLIPTIN (TRADJENTA) 5 MG TABLET PO SCH (09:12)
[2020-07-11] MEDS: SERTRALINE 50 MG (ZOLOFT) TABLET PO SCH (09:16)
[2020-07-11] MEDS: NYSTATIN CREAM (MYCOSTATIN) 30 GM TUBE TP SCH (09:16)
[2020-07-11] MEDS: PRIMIDONE 50 MG TAB (MYSOLINE) PO SCH (09:16)
--- NOTE | 2020-07-11 11:26 | NUR ---
[facility] finalized Discharge. Plan: The patient is discharging to [facility] today 07/11. Transportation is at 11:00 a.m. [facility]: [facility] spoke with Michelle to set up picking tech time for 11:00 a.m. [facility] informed the patient's nurse. BRITTANY/SS faxed the finalize discharge and updated clinical. BRITTANY/SS contacted Cindy to inform her of patient's discharge. She verbalized understanding. No further interventions needed.
[2020-07-11 11:38] VITALS: BP 159/71
== END 2020-07-11 11:38 | DRG 690 ==
LOC: ER FS 14:06 → 4TH 17:34
PROVIDERS: ADMIT Family Medicine; ATTEND Family Medicine
DX: N39.0 Urinary tract infection, site not specified (principal); N48.5 Ulcer of penis; Z66 Do not resuscitate; F03.90 Unspecified dementia, unspecified severity, without behavioral disturbance, psychotic disturbance, mood disturbance, and anxiety; E11.9 Type 2 diabetes mellitus without complications; R03.0 Elevated blood-pressure reading, without diagnosis of hypertension
CPT/HCPCS: 36415; 51702; 74018; 80053; 81000; 82962; 83605; 83735; 85007; 85025; 85027; 87040; 87070; 87077; 87088; 87186; 87205

== ENCOUNTER → 2020-08-11 | Outpatient (CLI) | payer MEDICARE, MEDICAID ==
[~2020-08-11] MED LIST: ACET-2267 PO; CEPH-507 PO; DIPH25TA65 PO; INSU100I29 SC; LINA5TAB PO; METF-399 PO; NYST15CR TOP; POLY17PO6 PO; POTA10CA43 PO; PRIM50TA33 PO; SERT25TA5 PO; SERT50TA9 PO; TR025C15 TP
[2020-08-11 20:49] LABS: CARBON DIOXIDE 29 MMOL/L (21-32); CHLORIDE 104 MMOL/L (98-107); POTASSIUM 4.6 MMOL/L (3.6-5.0); SODIUM 145 MMOL/L (135-145)
[2020-08-11 20:50] LABS: ALANINE AMINOTRANSFERASE 11 U/L (0-55); ALBUMIN 4.4 GM/DL (3.2-4.5); ALKALINE PHOSPHATASE 105 U/L (40-136); BILIRUBIN,TOTAL 0.3 MG/DL (0.1-1.0); BUN/CREATININE RATIO 22; CALCIUM 9.7 MG/DL (8.5-10.1); CREATININE SERUM 1.09 MG/DL (0.60-1.30); GFR ESTIMATED > 60; GLUCOSE 61 MG/DL (70-105); TOTAL PROTEIN 7.8 GM/DL (6.4-8.2)
[2020-08-11 22:07] LABS: HEMOGLOBIN 13.4 G/DL (13.3-17.7); MEAN CORPUSCULAR HEMOGLOBIN 31 PG (25-34); WHITE BLOOD COUNT 13.5 10^3/uL (4.3-11.0)
[2020-08-11 22:08] LABS: BASOPHILS # (AUTO) 0.1 10^3/uL (0.0-0.1); BASOPHILS % (AUTO) 0 % (0-10); EOSINOPHILS # (AUTO) 0.7 10^3/uL (0.0-0.3); EOSINOPHILS % (AUTO) 6 % (0-10); HEMATOCRIT 44 % (40-54); LYMPHOCYTES # (AUTO) 6.2 X 10^3 (1.0-4.0); LYMPHOCYTES % (AUTO) 46 % (12-44); MEAN CORPUSCULAR HGB CONC 31 G/DL (32-36); MEAN CORPUSCULAR VOLUME 101 FL (80-99); MEAN PLATELET VOLUME 11.4 FL (7.4-10.4); MONOCYTES # (AUTO) 0.6 X 10^3 (0.0-1.0); MONOCYTES % (AUTO) 5 % (0-12); NEUTROPHILS # (AUTO) 5.8 X 10^3 (1.8-7.8); NEUTROPHILS % (AUTO) 43 % (42-75); PLATELET COUNT 272 10^3/uL (130-400)
[2020-08-11 22:14] LABS: BAND NEUTROPHILS 13 %; LYMPHOCYTES % (MANUAL) 38 %; NEUTROPHILS % (MANUAL) 28 %
[2020-08-11 22:15] LABS: ATYPICAL LYMPHOCYTES 11 %; BASOPHILS % (MANUAL) 0 %; EOSINOPHILS % (MANUAL) 5 %; MONOCYTES % (MANUAL) 5 %; RBC MORPH NORMAL
[2020-08-11 22:45] LABS: TRIGLYCERIDES 231 MG/DL (<150); VLDL CHOLESTEROL 46 MG/DL (5-40)
[2020-08-11 22:50] LABS: CHOLESTEROL 246 MG/DL (< 200); HDL CHOLESTEROL 49 MG/DL (40-60)
== END ==
LOC: LAB FS 15:24
PROVIDERS: ATTEND Pediatrics
DX: I25.9 Chronic ischemic heart disease, unspecified (principal); E11.9 Type 2 diabetes mellitus without complications
CPT/HCPCS: 36415; 80053; 80061; 83036; 85007; 85027

== ENCOUNTER → 2020-08-26 | Outpatient (CLI) | payer MEDICARE, MEDICAID ==
[2020-08-26 15:07] LABS: CHOLESTEROL 220 MG/DL (< 200); HDL CHOLESTEROL 40 MG/DL (40-60); TRIGLYCERIDES 254 MG/DL (<150); VLDL CHOLESTEROL 51 MG/DL (5-40)
== END ==
LOC: LAB FS 10:12
PROVIDERS: ATTEND Pediatrics
DX: E11.9 Type 2 diabetes mellitus without complications (principal)
CPT/HCPCS: 36415; 80061; 83036

== ENCOUNTER 2020-09-24 08:28 | Emergency (ER) | payer MEDICARE, MEDICAID ==
[2020-09-24] MEDS ORDERED: NS IV 1000 ML 1,000 ML IV SCH ×2 (08:45→11:00)
[2020-09-24] MEDS ORDERED: ACETAMINOPHEN 650 MG SUPP (TYLENOL) PR ONE (08:45)
[2020-09-24 09:01] LABS: HEMATOCRIT 46 % (40-54); HEMOGLOBIN 14.1 G/DL (13.3-17.7); MEAN CORPUSCULAR HEMOGLOBIN 31 PG (25-34); WHITE BLOOD COUNT 14.5 10^3/uL (4.3-11.0)
--- NOTE | 2020-09-24 09:01 | ED General ---
General Chief Complaint: Altered Mental Status Stated Complaint: AMS Source of Information: EMS, Residential Records Exam Limitations: Physical Impairments (patient lethargic and decreased responsiveness) History of Present Illness Date Seen by Provider: Sep 24, 2020 Time Seen by Provider: 08:30 Initial Comments 85-year-old male presenting with altered mental status and [facility] blood [facility]. He had a fever over 101 today as well as low oxygen saturation. His symptoms started yesterday with not wanting to eat and drink as much. He normally has dementia and is a 2 person assist according to the prison but is still smiling and interactive. However since yesterday he has not been interactive and not been eating or drinking as well. He has a new oxygen requirement this morning as well as the low blood sugar. He is a known diabetic. He had a negative COVID swab on Tuesday. Allergies and Home Medications Allergies Coded Allergies: insulin glargine (Verified Allergy, Unknown, 07/08/20) Home Medications Acetaminophen 500 Mg Tablet, 500 MG PO Q6H PRN for PAIN-MILD (1-4), (Reported) Cephalexin 500 Mg Capsule, 500 MG PO BID Prescribed by: DEANDRE JOHNSON on 07/11/20 0846 Diphenhydramine HCl 25 Mg Tablet, 25 MG PO Q4H PRN for ITCHING/HICCUPS, (Reported) Insulin Detemir 100 Unit/1 Ml Insuln.pen, 40 UNITS SC DAILY, (Reported) Linagliptin 5 Mg Tablet, 5 MG PO DAILY, (Reported) Metformin HCl 1,000 Mg Tablet, 1,000 MG PO BID, (Reported) Nystatin 15 Gm Cream..g., 1 APPLIC TOP TID, (Reported) APPLY TO HEAD OF THE PENIS Polyethylene Glycol 3350 17 Gm Powd.pack, 17 GM PO DAILY PRN for CONSTIPATION- 2ND LINE, (Reported) Potassium Chloride 10 Meq Capsule.er, 10 MEQ PO BID, (Reported) Primidone 50 Mg Tablet, 50 MG PO TID, (Reported) Sertraline HCl 50 Mg Tablet, 50 MG PO DAILY, (Reported) TAKES 50MG +25MG TO EQUAL 75MG DAILY Sertraline HCl 25 Mg Tablet, 25 MG PO DAILY, (Reported) TAKES 50MG +25MG TO EQUAL 75MG DAILY Triamcinolone Acet 15 Gm Cr, 1 APPLIC TP Q12H PRN for RASH, (Reported) APPLY TO [facility] Patient Home Medication List Home Medication List Reviewed: Yes Review of Systems Review of Systems Constitutional: fever EENTM: No ear discharge, No epistaxis, No nose congestion Respiratory: No cough, No stridor, No wheezing Cardiovascular: no symptoms reported Gastrointestinal: loss of appetite (not eating as well the last few days); No vomiting Genitourinary: incontinence (chronic and wears an adult brief) Skin: No rash pt is not answering questions so ROS obtained from EMS and NH Past Catpjbr-Jcedap-Wtycoh Hx Past Med/Social Hx: Reviewed Nursing Past Med/Soc Hx Patient Social History 2nd Hand Smoke Exposure: No Recent Hopitalizations: No Seasonal Allergies Seasonal Allergies: No Past Medical History Surgeries: No (UNKNOWN PATIENT POOR HISTORIAN) Respiratory: No Cardiac: Yes (Chronic ischemic heart disease) Neurological: Yes (Convulsions) Dementia Genitourinary: Yes (Decreased output/penile drainage) Musculoskeletal: Yes (GENERALIZED WEAKNESS) Diabetes, Insulin dep HEENT: No Cancer: No Psychosocial: Yes Depression Blood Disorders: No Physical Exam Vital Signs Vital Signs - First Documented 09/24/20 09/24/20 08:28 12:00 Temp 38.0 Pulse 111 Resp 19 B/P (MAP) 138/67 (90) Pulse Ox 90 O2 Delivery Room Air O2 Flow Rate 2.00 Capillary Refill : Height, Weight, BMI Height: '" Weight: lbs. oz. kg; 25.60 BMI Method: General Appearance: No Apparent Distress, Chronically ill Eyes: Bilateral Eye PERRL HEENT: No Moist Mucous Membranes (slightly dry mucous membranes) Respiratory: Chest Non Tender, Decreased Breath Sounds, Rales, Rhonci; No Stridor Cardiovascular: Normal Peripheral Pulses, Tachycardia Gastrointestinal: No Pulsatile Mass, Non Tender, Soft Extremity: Normal Capillary Refill, No Pedal Edema Neurologic/Psychiatric: No Oriented x3 (not answering questions) Skin: Warm/Dry Focused Exam Lactate Level 09/24/20 08:45: Lactic Acid Level 1.08 Lactic Acid Level Progress/Results/Core Measures Suspected Sepsis SIRS Temperature: Pulse: Respiratory Rate: Laboratory Tests 09/24/20 08:42: White Blood Count 14.5H Blood Pressure / Mean: 09/24/20 08:45: Lactic Acid Level 1.08 Laboratory Tests 09/24/20 08:42: Creatinine 1.76H, INR Comment 1.3, Platelet Count 345, Total Bilirubin 0.2 Results/Orders Lab Results Laboratory Tests Test 09/24/20 08:42 09/24/20 08:44 09/24/20 08:45 09/24/20 08:47 Range/Units White Blood Count 14.5 H 4.3-11.0 10^3/uL Red Blood Count 4.61 4.35-5.85 10^6/uL Hemoglobin 14.1 13.3-17.7 G/DL Hematocrit 46 40-54 % Mean Corpuscular Volume 100 H 80-99 FL Mean Corpuscular Hemoglobin 31 25-34 PG Mean Corpuscular Hemoglobin Concent 31 L 32-36 G/DL Red Cell Distribution Width 15.2 H 10.0-14.5 % Platelet Count 345 130-400 10^3/uL Mean Platelet Volume 10.5 H 7.4-10.4 FL Immature Granulocyte % (Auto) 0 % Neutrophils (%) (Auto) 49 42-75 % Lymphocytes (%) (Auto) 46 H 12-44 % Monocytes (%) (Auto) 3 0-12 % Eosinophils (%) (Auto) 1 0-10 % Basophils (%) (Auto) 0 0-10 % Neutrophils # (Auto) 7.1 1.8-7.8 X 10^3 Lymphocytes # (Auto) 6.7 H 1.0-4.0 X 10^3 Monocytes # (Auto) 0.5 0.0-1.0 X 10^3 Eosinophils # (Auto) 0.2 0.0-0.3 10^3/uL Basophils # (Auto) 0.0 0.0-0.1 10^3/uL Immature Granulocyte # (Auto) 0.0 0.0-0.1 10^3/uL Neutrophils % (Manual) 28 % Lymphocytes % (Manual) 63 % Monocytes % (Manual) 1 % Eosinophils % (Manual) 0 % Basophils % (Manual) 0 % Band Neutrophils 8 % Blood Morphology Comment NORMAL Prothrombin Time 16.1 H 12.2-14.7 SEC INR Comment 1.3 0.8-1.4 Activated Partial Thromboplast Time 31 24-35 SEC Sodium Level 160 *H 135-145 MMOL/L Potassium Level 5.0 3.6-5.0 MMOL/L Chloride Level 123 H 98-107 MMOL/L Carbon Dioxide Level 23 21-32 MMOL/L Anion Gap 14 5-14 MMOL/L Blood Urea Nitrogen 45 H 7-18 MG/DL Creatinine 1.76 H 0.60-1.30 MG/DL Estimat Glomerular Filtration Rate 37 BUN/Creatinine Ratio 26 Glucose Level 135 H 70-105 MG/DL Calcium Level 9.1 8.5-10.1 MG/DL Corrected Calcium 9.4 8.5-10.1 MG/DL Total Bilirubin 0.2 0.1-1.0 MG/DL Aspartate Amino Transf (AST/SGOT) 29 5-34 U/L Alanine Aminotransferase (ALT/SGPT) 17 0-55 U/L Alkaline Phosphatase 110 40-136 U/L C-Reactive Protein 1.66 H <0.50 MG/DL Total Protein 7.5 6.4-8.2 GM/DL Albumin 3.6 3.2-4.5 GM/DL Blood Gas Puncture Site NA Blood Gas Patient Temperature 37.1 Arterial Blood pH 7.38 7.37-7.43 Arterial Blood Partial Pressure CO2 47 H 35-45 MMHG Arterial Blood Partial Pressure O2 58 L 79-93 MMHG Arterial Blood HCO3 28 H 23-27 MMOL/L Arterial Blood Total CO2 29.2 21.0-31.0 MMOL/L Arterial Blood Oxygen Saturation 89 L 94-100 % Arterial Blood Base Excess 2.1 -2.5-2.5 MMOL/L Kenny Test YES-POS Blood Gas Ventilator Setting NO Blood Gas Inspired Oxygen ROOM AIR Lactic Acid Level 1.08 0.50-2.00 MMOL/L Glucometer 122 H 70-110 MG/DL Test 09/24/20 08:51 09/24/20 09:28 09/24/20 11:37 Range/Units Urine Color YELLOW Urine Clarity SL CLOUDY Urine pH 5.0 5-9 Urine Specific [place] 1.020 1.016-1.022 Urine Protein TRACE H NEGATIVE Urine Glucose (UA) NEGATIVE NEGATIVE Urine Ketones TRACE H NEGATIVE Urine Nitrite NEGATIVE NEGATIVE Urine Bilirubin NEGATIVE NEGATIVE Urine Urobilinogen 0.2 < = 1.0 MG/DL Urine Leukocyte Esterase 2+ H NEGATIVE Urine RBC (Auto) NEGATIVE NEGATIVE Urine RBC NONE /HPF Urine WBC 10-25 H /HPF Urine Squamous Epithelial Cells 5-10 /HPF Urine Crystals NONE /LPF Urine Bacteria MODERATE H /HPF Urine Casts PRESENT /LPF Urine Granular Casts 0-2 H /LPF Urine Mucus MODERATE H /LPF Urine Culture Indicated YES Glucometer 84 70-110 MG/DL My Orders Orders - MICHAEL PETERSON MD Monitor-Rhythm Ecg Trace Only (09/24/20 08:45) Ed Iv/Invasive Line Start (09/24/20 08:45) Cbc With Automated Diff (09/24/20 08:45) Comprehensive Metabolic Panel (09/24/20 08:45) Crp Fs (09/24/20 08:45) Protime With Inr (09/24/20 08:45) Partial Thromboplastin Time (09/24/20 08:45) Ekg Tracing (09/24/20 08:45) Arterial Blood Gas (09/24/20 08:45) Ns Iv 1000 Ml (Sodium Chloride 0.9%) (09/24/20 08:45) Acetaminophen Suppository (Tylenol Suppo (09/24/20 08:45) Blood Culture (09/24/20 08:45) Chest 1 View Ap/Pa Only (09/24/20 08:45) O2 (09/24/20 08:45) Lactic Acid Analyzer (09/24/20 08:45) Ua Culture If Indicated (09/24/20 08:49) Straight Cath For Spec.-Adult (09/24/20 08:49) Coronavirus Sars-Cov-2 So 2018 (09/24/20 08:50) Code/Resuscitation (09/24/20 08:59) Manual Differential (09/24/20 08:42) Urine Culture (09/24/20 09:28) Ceftriaxone For Iv Use (Rocephin For I (09/24/20 10:45) Ns Iv 1000 Ml (Sodium Chloride 0.9%) (09/24/20 11:00) Medications Given in ED Current Medications Medications Dose Ordered Sig/Irina Route Start Time Stop Time Status Last Admin Dose Admin Acetaminophen 650 mg ONCE ONCE DC 09/24/20 08:45 09/24/20 08:49 DC 09/24/20 09:28 650 MG Ceftriaxone Sodium 1000 mg/ Sterile Water 10 ml @ 200 mls/hr ONCE ONCE IV 09/24/20 10:45 09/24/20 10:47 DC 09/24/20 11:39 200 MLS/HR Vital Signs/I&O 09/24/20 09/24/20 09/24/20 08:28 09:28 12:00 Temp 38.0 38.0 38.2 Pulse 111 110 Resp 19 20 B/P (MAP) 138/67 (90) 122/80 (90) Pulse Ox 90 96 O2 Delivery Room Air Nasal Cannula O2 Flow Rate 2.00 Capillary Refill : Progress Note #1: Progress Note check basic labs as well as blood cultures and chest x-ray. Since he is hypoxic and having O2 saturation around 90% on room air with decreased mental status and decreased responsiveness will obtain a blood gas in addition to the chest x-ray. Send a COVID swab since he has running a fever and having hypoxia with decreased responsiveness. Give IV fluids for hydration, acetaminophen by rectum for his fever from the prison. Progress Note #2: Time: 09:21 Progress Note Labs show elevated WBC with elevated Lymphocytes. Chemistry has elevated Sodium at 160 and Chloride at 123. BUN elevated at 45 and Cr at 1.76. Normal Lactic acid at 1.08. CXR is not showing any acute process and no infiltrate. His ABG shows 7.38/pCO2 47/pO2 58 on room air. Progress Note #3: Time: 10:57 Progress Note his urine did show signs of UTI so they Dr. Burris was last culture results with Klebsiella pneumonia a dose of Rocephin was ordered. Discussed with his primary care provider Dr. Lino Beckett and the patient was accepted to [facility] for admission. Will continue with oxygen and supplemental fluids. Anticipate doing a rapid COVID on arrival to [facility]. Also anticipate possible treatment for viral type pneumonia since he had hypoxia on arrival but clear chest x-ray. ECG Initial ECG Impression Date: Sep 24, 2020 Initial ECG Impression Time: 08:56 Initial ECG Rate: 114 Initial ECG Rhythm: S.Tach Comment sinus tachycardia with heart rate of 114 bpm. Low voltage precordial leads. Atrial premature complexes. DC interval 115 ms. QT interval 283 ms with a QTc interval 390 ms. No prior tracing immediately available for comparison. No acute ST elevation. Diagnostic Imaging Diagonstic Imaging: Xray Plain Films/CT/US/NM/MRI: chest Comments [facility], [place] NAME: PARTHA LOW MED REC#: [id number] PT STATUS: REG ER : 1935 PHYSICIAN: MICHAEL PETERSON MD ADMIT DATE: 09/24/20/ER FS Draft Date of Exam:09/24/20 CHEST 1 VIEW AP/PA ONLY INDICATION: Altered mental status and hypoxia. TIME OF EXAM: 9:11 AM. COMPARISON: No prior studies are available for comparison. FINDINGS: The heart size is normal. The pulmonary vascularity is unremarkable. The lungs are clear. No infiltrate, effusion, or pneumothorax is detected. IMPRESSION: No acute cardiopulmonary process is detected. Dictated on workstation # [id number] Dict: 09/24/20921 Trans: 09/24/20922 [id number] Interpreted by: BRONWYN CRUZ MD Electronically signed by: Departure Impression Primary Impression: Cystitis without hematuria Additional Impressions: Hypoxia Dehydration Acute kidney injury Hypernatremia Altered mental state Qualified Codes: R40.4 - Transient alteration of awareness Disposition: XFER SHT-TRM HOSP Condition: Stable Transfer Transfer Reason: Patient preference (Primary Care Provider at [place]) Time Spoke to Accepting Phy: 10:57 Transfer Progress Notes discussed with his primary care provider Dr. Lino Beckett and he accepted the patient to come to [facility]. Will do a rapid COVID swab when he arrives. Anticipate treating him for a viral pneumonia since he had hypoxia but his CXR was clear on arrival. Will cover him with antibiotics for the UTI as well. Transfer Facility: [facility] Method of Transfer: EMS Departure-Patient Inst. Referrals: LINO BECKETT MD (PCP/Family) Primary Care Physician MICHAEL PETERSON MD Sep 24, 2020 09:01
[2020-09-24 09:02] LABS: BASOPHILS % (AUTO) 0 % (0-10); EOSINOPHILS # (AUTO) 0.2 10^3/uL (0.0-0.3); EOSINOPHILS % (AUTO) 1 % (0-10); LYMPHOCYTES # (AUTO) 6.7 X 10^3 (1.0-4.0); LYMPHOCYTES % (AUTO) 46 % (12-44); MEAN CORPUSCULAR HGB CONC 31 G/DL (32-36); MEAN CORPUSCULAR VOLUME 100 FL (80-99); MEAN PLATELET VOLUME 10.5 FL (7.4-10.4); MONOCYTES # (AUTO) 0.5 X 10^3 (0.0-1.0); MONOCYTES % (AUTO) 3 % (0-12); NEUTROPHILS # (AUTO) 7.1 X 10^3 (1.8-7.8); NEUTROPHILS % (AUTO) 49 % (42-75); PLATELET COUNT 345 10^3/uL (130-400)
[2020-09-24 09:09] LABS: ABG BASE EXCESS 2.1 MMOL/L (-2.5-2.5); ABG PCO2 47 MMHG (35-45); ABG PH 7.38 (7.37-7.43); ABG PO2 58 MMHG (79-93); ABG TCO2 29.2 MMOL/L (21.0-31.0)
[2020-09-24 09:10] LABS: ABG OXYGEN SATURATION 89 % (94-100); ALLENS TEST YES-POS; INSPIRED O2 ROOM AIR; PATIENT TEMP 37.1; VENTILATOR NO
[2020-09-24 09:17] LABS: INR 1.3 (0.8-1.4); PROTHROMBIN TIME PATIENT 16.1 SEC (12.2-14.7)
[2020-09-24 09:21] LABS: BILIRUBIN,TOTAL 0.2 MG/DL (0.1-1.0); CALCIUM 9.1 MG/DL (8.5-10.1); CREATININE SERUM 1.76 MG/DL (0.60-1.30)
[2020-09-24 09:22] LABS: ALBUMIN 3.6 GM/DL (3.2-4.5); TOTAL PROTEIN 7.5 GM/DL (6.4-8.2)
--- NOTE | 2020-09-24 09:24 | Diagnostic Imaging Report ---
INDICATION: Altered mental status and hypoxia. TIME OF EXAM: 9:11 AM. COMPARISON: No prior studies are available for comparison. FINDINGS: The heart size is normal. The pulmonary vascularity is unremarkable. The lungs are clear. No infiltrate, effusion, or pneumothorax is detected. IMPRESSION: No acute cardiopulmonary process is detected. The report was faxed to [place] in the ER by elijah@12:15 PM. Dictated by: Dictated on workstation # [id number]
[2020-09-24 10:15] LABS: BAND NEUTROPHILS 8 %; BASOPHILS % (MANUAL) 0 %; EOSINOPHILS % (MANUAL) 0 %; LYMPHOCYTES % (MANUAL) 63 %; MONOCYTES % (MANUAL) 1 %; NEUTROPHILS % (MANUAL) 28 %; RBC MORPH NORMAL
[2020-09-24 10:21] LABS: BACTERIA,URINE MODERATE /HPF; BILIRUBIN,URINE NEGATIVE (NEGATIVE); CLARITY,URINE SL CLOUDY; COLOR,URINE YELLOW; GLUCOSE, URINE (UA) NEGATIVE (NEGATIVE); GRANULAR CASTS,URINE 0-2 /LPF; KETONES,URINE TRACE (NEGATIVE); LEUKOCYTE ESTERASE ,URINE 2+ (NEGATIVE); NITRITE,URINE NEGATIVE (NEGATIVE); PROTEIN,URINE TRACE (NEGATIVE)
[2020-09-24] MEDS ORDERED: cefTRIAXone FOR IV USE 1,000 MG in WATER (STERILE) FOR INJECTION 10 ML IV ONE (10:45)
--- NOTE | 2020-09-24 11:33 | NUR ---
Updated Joao at [facility] that patient is being admitted to [facility].
--- NOTE | 2020-09-24 11:35 | NUR ---
Attempted to call Cindy, patients contact listed on chart, x 2 with no answer.
[2020-09-24 12:00] VITALS: BP 122/80
== END 2020-09-24 12:00 | disposition short-term general hospital (02) ==
LOC: EDUNIT# 08:28 → ER FS 08:29
DX: N30.90 Cystitis, unspecified without hematuria (principal); R09.02 Hypoxemia; E86.0 Dehydration; N17.9 Acute kidney failure, unspecified; R41.82 Altered mental status, unspecified; E87.0 Hyperosmolality and hypernatremia; E11.9 Type 2 diabetes mellitus without complications; F32.9 Major depressive disorder, single episode, unspecified; Z20.828 Contact with and (suspected) exposure to other viral communicable diseases; Z88.8 Allergy status to other drugs, medicaments and biological substances; Z79.4 Long term (current) use of insulin
CPT/HCPCS: 36415; 71045; 80053; 81000; 82805; 82962; 83605; 85007; 85027; 85610; 85730; 86141; 87040; 87088; 93005; 93041; U0002; 87635; 99291